=== PATIENT | male | born 1955 | race Caucasian/White ===

== ENCOUNTER 2024-01-18 07:51 | Outpatient (CLI) | payer MEDICARE, SELFPAY | END 2024-01-18 07:52 | disposition home or self-care (01) | LOC: ANHBWCAUD 07:52 | PROVIDERS: PCP Family Medicine; Visit Provider Otolaryngology | DX: H90.6 Mixed conductive and sensorineural hearing loss, bilateral (principal); J32.0 Chronic maxillary sinusitis; J34.2 Deviated nasal septum; J34.89 Other specified disorders of nose and nasal sinuses | CPT/HCPCS: 92557; 92567 ==

== ENCOUNTER 2024-01-18 09:37 | Outpatient (CLI) | payer MEDICARE, SELFPAY ==
--- NOTE | ~2024-01-18 | CT_ITS ---
EXAMINATION: CT sinus wo con DATE: 01/18/2024 09:58 INDICATION: Chronic maxillary sinusitis TECHNIQUE: Computed tomography (CT) of the paranasal sinuses was performed without intravenous contra st. The dose-length product was 273.54 mGy-cm. Automated exposure control and iterative reconstruction technique were employed. COMPARISON: None FINDINGS: There is normal pneumatization of the paranasal sinuses and mastoids. There is right spheno id sinusitis. Minimal mucosal thickening of the eighth white sinuses. No air-fluid levels. No mucoper iosteal reaction. Rightward nasal septal deviation. Ostiomeatal units are patent. Mastoids are pneuma tized. There is intracranial atherosclerosis. IMPRESSION: 1. Mild sinusitis involving the ethmoid and right sphenoid sinuses. Reviewed, dictated and finalized at location B.
== END 2024-01-18 09:38 | disposition home or self-care (01) ==
LOC: ANHIMG 09:37
PROVIDERS: PCP Family Medicine; Visit Provider Otolaryngology
DX: J32.2 Chronic ethmoidal sinusitis (principal); J32.3 Chronic sphenoidal sinusitis
CPT/HCPCS: 70486; 92557; 92567